=== PATIENT | female | born 1960 | race Two or more races ===

== ENCOUNTER 2019-06-09 23:29 | Emergency (ER) | payer OTHER ==
[~2019-06-09] VITALS: Ht 165.1 cm; Wt 95.3 kg
--- NOTE | 2019-06-10 00:17 | NUR ---
AAOX4. AMBULATORY. PT C/O ITCHING ALL OVER UPPER BODY X1DAY, TOOK BENADRYL AT NOON, NO RELIEF. RR EVEN AND UNLABORED. PLACED ON MONITOR AND PULSE OX. NO ACUTE DISTRESS NOTED. VSS. PA AT BEDSIDE.
--- NOTE | 2019-06-10 00:25 | NUR ---
PEPCID 40MG NOT AVAILABLE. CALLED [facility], MED PULLED OUT FROM [facility].
[2019-06-10] MEDS ORDERED: diphenhydrAMINE HCL 50 MG CAPSULE ONE (00:26)
[2019-06-10] MEDS ORDERED: predniSONE 20 MG TABLET ONE (00:27)
[2019-06-10] MEDS ORDERED: diphenhydrAMINE HCL 50 MG CAPSULE PO ONE (00:30)
[2019-06-10] MEDS ORDERED: FAMOTIDINE (20 MG) 20 MG TABLET PO ONE (00:30)
[2019-06-10] MEDS ORDERED: predniSONE 10 MG TABLET PO ONE (00:30)
[2019-06-10] MEDS ORDERED: FAMOTIDINE (20 MG) 20 MG TABLET ONE (00:33)
--- NOTE | 2019-06-10 01:14 | NUR ---
Patient discharged to home in stable condition. Written and verbal after care instructions given. Patient verbalizes understanding of instruction and RX. PT Ammbulatory with a steady gait.
[2019-06-10 01:15] VITALS: BP 126/78
== END 2019-06-10 01:15 | disposition home or self-care (01) ==
LOC: ER 23:34
DX: L29.8 Other pruritus (principal); I10 Essential (primary) hypertension
CPT/HCPCS: 99284; J7512; Q0163